=== PATIENT | female | born 1935 | race Caucasian/White ===

== ENCOUNTER → 2017-09-18 | Day surgery (SDC) | payer BC ==
[2017-08-23 08:08] VITALS: Ht 157.5 cm; Wt 63.6 kg
[~2017-09-18] VITALS: Ht 157.5 cm; Wt 63.6 kg
[~2017-09-18] MED LIST: ACETAMINOPHEN 325 MG TAB PO PRN; ASCA500 PO; ATROPINE SULFATE 0.1 MG/ML 5ML SYR IV PRN; AcetylCHOLine CHL OP SOL 1:100 2 ML BTL ONE; BRIMONIDINE TART 0.2% OP SOLN PER DROP CHARGE ONE; BSS 500ML IRRIG ONE; BSS FLUSH ONE; CALC-354 PO; CLR10 PO; CRDCD/180 PO; EpHEDrine SULFATE INJ 50 MG/ML AMP IV PRN; EpINEphrine INJ 1MG/ML AMP 1 MG/ML AMP ONE; FLAX10007 PO; FURO-85 PO; GLC/500 PO; HEALON 10MG/ML 0.85 ML SYR INSTIL ONE; LACTATED RINGER'S 1000ML 1,000 ML IV SCH; LEVO50TA6 PO; LIDOCAINE 3.5% OPH GEL PER APPLICATION CHARGE OPR SCH; LIDOCAINE 4% OP SOLN DROP CHARGE ONE; LIDOCAINE 4% OP SOLN DROP CHARGE OPR SCH; LIDOCAINE HCL 1% MPF 2 ML VIAL ONE; MIDAZOLAM HCL 1 MG/ML 2ML VIAL ONE; MOXIFLOXACIN OPH SOLN PER DROP CHARGE ONE; MULT-506 PO; PROPARACAINE 0.5% OP SOLN PER DROP CHARGE OPR SCH; RAMI10CA PO; TETRACAINE HCL (OPHTH) 60 DROPS/4 ML BTL OP ONE; TOBRAMYCIN/DEXAMETHASONE OPH OINT PER APPLN CHARGE ONE; WARF3TAB PO
[2017-09-18] MEDS: MOXIFLOXACIN OPH SOLN PER DROP CHARGE OPR SCH ×3 (07:29→07:49)
--- NOTE | 2017-09-18 07:40 | History & Physical Bridge - [place] ---
H&P Re-Evaluation Bridge Note: I have examined the patient, reviewed the History & Physical and in the interval since the performance of the History & Physical I have noted the following changes of clinical significance: No changes noted
--- NOTE | 2017-09-18 09:35 | Discharge Instructions-SurgCtr ---
Discharge Instructions Date of Service Sep 18, 2017. Visit Reason for Visit: Right Eye Endothelial Corneal Dystrophy Discharge Discharge Diagnosis / Problem: Fuchs Corneal Dystrophy Right eye Discharge Goals Goal(s): Improve function Activity Recommendations Activity Limitations: per Instructions/Follow-up section Lifting Limitations: no more than 5 pounds Anesthesia . Post Anesthesia Instructions: If you have had General Anesthesia or IV Sedation: * Do not drive today. * Resume driving when surgeon permits. * Do not make important decisions or sign legal documents today. * Call surgeon for: 1. Temperature elevations greater than 101 degrees F. 2. Uncontrollable pain. 3. Excessive bleeding. 4. Persistent nausea and vomiting. 5. Medication intolerance (nausea, vomiting or rash). * For nausea and vomiting use only clear liquids such as: tea, soda, bouillon until nausea subsides, then gradually increase diet as tolerated. * If you have any concerns or questions, call your surgeon's office. If physician is unavailable and it is an emergency, call 911 or go to the nearest emergency room. . Instructions / Follow-Up Instructions / Follow-Up ACTIVITY RECOMMENDATIONS: * Bedrest- Eyes to the patrick * Mild irritation and blurred vision are common for the first few days, redness around the white part of the eye is common. MEDICATIONS: Resume previous medications unless instructed otherwise by your surgeon. Eye drops (today and tomorrow): Cipro - one drop in operative eye every 2 hours while awake Prednisolone 1% - one drop in operative eye every 2 hours while awake SPECIAL CARE INSTRUCTIONS: * If any problems or concerns, please call Dr. Crawford's office at . * Keep plastic shield taped over eye to sleep at night. * Keep plastic shield taped over eye except to administer eye drops. * Keep plastic shield on until office visit the following day. FOLLOW UP VISIT: Follow-up with Dr. Crawford in the [place] office as scheduled. If not already scheduled, please call the office at . Diet Recommendations Home Diet: resume previous diet Procedures Procedures Performed: Right Eye Descements Stripping Automated Endothelial Keratoplasty Pending Studies Studies pending at discharge: no Medical Emergencies . Who to Call and When: Medical Emergencies: If at any time you feel your situation is an emergency, please call 911 immediately. . Non-Emergent Contact Non-Emergency issues call your: Lacquer Coater . . "Provider Documentation" section prepared by Maxim Crawford. .
--- NOTE | 2017-09-18 09:36 | [facility] Post Operative Brief Note ---
Immediate Operative Summary Operative Date Sep 18, 2017. Pre-Operative Diagnosis Right Eye Endothelial Corneal Dystrophy Post-Operative Diagnosis Same Procedure(s) Performed Right Eye Descements Stripping Automated Endothelial Keratoplasty Surgeon Dr. Annamarie Crawford Railway Traction Line Worker Surgeon(s) None Estimated Blood Loss 0 Findings Fuchs Corneal Dystrophy Right eye Fluids (cc crystalloids) see anesthesia record Specimens Culture of Corneal Donor Rim sent Drains none Anesthesia local with sedation Complication(s) None Disposition Recovery Room / PACU
[2017-09-18 09:38] VITALS: TEMP 36.5
--- NOTE | 2017-09-18 09:57 | Anesthesia Progress Nt - [facility] ---
Anesthesia Post Op Note Date & Time Sep 18, 2017 at 09:57 Vital Signs Pain Intensity: 0 Vital Signs Past 12 Hours Date Time Temp Pulse Resp B/P (MAP) Pulse Ox O2 Delivery O2 Flow Rate FiO2 09/18/17 09:38 36.5 71 16 149/77 (101) 96 Room Air 09/18/17 07:24 36.1 81 18 167/89 (115) 96 Room Air Notes Mental Status: alert / awake / arousable, participated in evaluation Pt Amnestic to Procedure: Yes Nausea / Vomiting: adequately controlled Pain: adequately controlled Airway Patency, RR, SpO2: stable & adequate BP & HR: stable & adequate Hydration State: stable & adequate Anesthetic Complications: no major complications apparent
--- NOTE | 2017-09-18 10:10 | OPERATIVE REPORT ---
DATE OF OPERATION: 09/18/2017 PREOPERATIVE DIAGNOSIS: Fuchs corneal dystrophy, right eye. POSTOPERATIVE DIAGNOSIS: Same. PROCEDURE PERFORMED: Descemet stripping automated endothelial keratoplasty, right eye. COMPLICATIONS: None. ESTIMATED BLOOD LOSS: None. ANESTHESIA: Local with sedation. DESCRIPTION OF PROCEDURE: After informed consent was obtained in the holding area, attention was first turned to the donor cornea. It was placed endothelial side up on a corneal trephine and trephinated by myself with an 8.25 mm Annabella trephine. It was then covered in Optisol and set aside. The patient was then brought back to the operating room where cardiac monitoring leads and oxygen by nasal cannula was administered by anesthesia. Gentle IV sedation was given, and the patient's right eye was prepped and draped in usual sterile fashion. A wire lid speculum was placed in the right eye and the operating microscope swung into position. Using 0.12 forceps and a supersharp blade, a paracentesis port was made at the 11 o'clock position of the patient's right eye. Nonpreserved lidocaine 1% was injected into the anterior chamber for anesthesia. A 2.2 mm keratome blade was then used to make a shelved clear cornea incision at the 9 o'clock position of the patient's right eye. The previously used corneal trephine was then inked and used to anna the center of the cornea for an 8.25 mm diameter. The anterior chamber was then filled with Healon and a reversed Sinskey hook was used to score and strip Descemet's membrane from within the marked area. The Descemet stripper was then used to remove Descemet's membrane that was stripped. A stromal clinical nursing intern was then used to roughen the stromal bed in the periphery of the stripped area. The main incision was then marked and widened to 4 mm. Irrigation-aspiration handpiece was then used to remove the viscoelastic material from the eye. The donor cornea was then placed endothelial side up on the EndoSerter and a drop of Healon was placed on it. It was then retracted into the EndoSerter. The EndoSerter was then used to inject the corneal graft into the eye through the primary incision. A single 10-0 nylon suture was placed to the primary incision and the graft was unfolded underneath BSS and air. A Catarina Lasik roller was used to position and center the graft and a complete air fill of the eye was achieved and was held for 15 minutes during which time the cornea was covered in Healon. Healon was then rinsed off. Three drops of atropine were placed on the eye and the Catarina Lasik roller was used to milk the interface. The cornea was recoated with Healon and another 10 minutes elapsed after which time the Healon was again rinsed off the eye and a partial air fluid exchange was done leaving behind a 70% air fill of the patient's right eye. ReSure sealant was then placed over the paracentesis as well as primary incision. The wire lid speculum was then removed from the eye. Vigamox and TobraDex ointment were placed on the eye and the eye was shielded. The patient tolerated the procedure well, was taken to recovery area to lay flat for an hour in stable condition. I attest to the content of the Intraoperative Record and any orders documented therein. Any exceptions are noted below. AUDRA
[2017-09-18 10:40] VITALS: BP 139/72; PULSE 79; O2SAT 94
== END | disposition home or self-care (01) ==
LOC: EDBD 07:00 → X.SURG 07:12
PROVIDERS: ATTEND Ophthalmology
DX: H18.51 Endothelial corneal dystrophy (principal); I10 Essential (primary) hypertension; I48.91 Unspecified atrial fibrillation; E11.9 Type 2 diabetes mellitus without complications; Z88.2 Allergy status to sulfonamides; I51.9 Heart disease, unspecified; I25.10 Atherosclerotic heart disease of native coronary artery without angina pectoris; E78.5 Hyperlipidemia, unspecified; E03.9 Hypothyroidism, unspecified; Z90.89 Acquired absence of other organs; Z98.890 Other specified postprocedural states; Z95.0 Presence of cardiac pacemaker; Z85.3 Personal history of malignant neoplasm of breast

== ENCOUNTER → 2018-02-12 | Day surgery (SDC) | payer BC ==
[2018-02-02 09:31] VITALS: Ht 157.5 cm; Wt 63.6 kg
[~2018-02-12] VITALS: Ht 157.5 cm; Wt 63.6 kg
[~2018-02-12] MED LIST changes: +500ML BSS 0.3ML EPI 1:1000PF IRRIG ONE; +AMVISC PLUS 0.8ML SYRINGE INT OCU ONE; -BSS 500ML IRRIG ONE; +ENDOCOAT 0.85ML SYRINGE INT OCU ONE; +FENTANYL CITRATE INJ 50 MCG/1 ML 2 ML VIAL ONE; -FURO-85 PO; -HEALON 10MG/ML 0.85 ML SYR INSTIL ONE; +LABETALOL HCL IV 5 MG/ML 20ML IV ONE; -LACTATED RINGER'S 1000ML 1,000 ML IV SCH; +LACTATED RINGER'S 1000ML 500 ML IV SCH; -LIDOCAINE 3.5% OPH GEL PER APPLICATION CHARGE OPR SCH; +LIDOCAINE 4% OP SOLN DROP CHARGE OPL SCH; -LIDOCAINE 4% OP SOLN DROP CHARGE OPR SCH; +POVIDONE-IODINE OP SOLN 30 ML BTL ONE; +PROPARACAINE 0.5% OP SOLN PER DROP CHARGE OPL SCH; -PROPARACAINE 0.5% OP SOLN PER DROP CHARGE OPR SCH; -RAMI10CA PO; +RAMI5CAP PO
[2018-02-12] MEDS: PHENYLEPHRINE HCL 2.5% OP SOLN PER DROP CHARGE OPL SCH ×2 (09:05→09:11)
[2018-02-12] MEDS: TROPICAMIDE 1% OP SOLN PER DROP CHARGE OPL SCH ×2 (09:06→09:12)
[2018-02-12] MEDS: CYCLOPENTOLATE HCL 1% OP SOLN PER DROP CHARGE OPL SCH ×2 (09:07→09:13)
[2018-02-12] MEDS: KETOROLAC 0.5% OP SOLN PER DROP CHARGE OPL SCH ×2 (09:08→09:14)
[2018-02-12] MEDS: MOXIFLOXACIN OPH SOLN PER DROP CHARGE OPL SCH ×2 (09:10→09:19)
[2018-02-12] MEDS: ATROPINE SULFATE 1% OP SOLN 2 ML BTL ONE ×2 (11:32→11:33)
--- NOTE | 2018-02-12 11:34 | [facility] Post Operative Brief Note ---
Immediate Operative Summary Operative Date Feb 12, 2018. Pre-Operative Diagnosis Left Endothelial corneal dystrophy, cataract left eye Post-Operative Diagnosis same as preop Procedure(s) Performed Left Eye Descements Stripping Automated Endothelial Keratoplasty; Phacoemulsification With Intraocular Lens Implant Surgeon Dr. Crawford [employer] Agent Surgeon(s) none Estimated Blood Loss 0ml Findings Consistent with Post-Op Diagnosis Fluids (cc crystalloids) see anesthesia record Specimens none Drains None Anesthesia Type MAC Complication(s) none Disposition Accompanied Pt To Recovery: no Disposition: Recovery Room / PACU
--- NOTE | 2018-02-12 11:38 | Discharge Instructions-SurgCtr ---
Discharge Instructions Date of Service Feb 12, 2018. Visit Reason for Visit: Left Endothelial Corneal Dystrophy, Cataract Discharge Discharge Diagnosis / Problem: catract and fuchs dystrophy left eye Discharge Goals Goal(s): Improve function Medications Stopped Medications Name(s): metforamin last dose 02-10-18 Activity Recommendations Activity Limitations: per Instructions/Follow-up section Lifting Limitations: none Anesthesia . Post Anesthesia Instructions: If you have had General Anesthesia or IV Sedation: * Do not drive today. * Resume driving when surgeon permits. * Do not make important decisions or sign legal documents today. * Call surgeon for: 1. Temperature elevations greater than 101 degrees F. 2. Uncontrollable pain. 3. Excessive bleeding. 4. Persistent nausea and vomiting. 5. Medication intolerance (nausea, vomiting or rash). * For nausea and vomiting use only clear liquids such as: tea, soda, bouillon until nausea subsides, then gradually increase diet as tolerated. * If you have any concerns or questions, call your surgeon's office. If physician is unavailable and it is an emergency, call 911 or go to the nearest emergency room. . Instructions / Follow-Up Instructions / Follow-Up ACTIVITY RECOMMENDATIONS: * Bedrest: eyes to the patrick except for bathroom and meals MEDICATIONS: Resume previous medications unless instructed otherwise by your surgeon. Eye drops (today and tomorrow): Cipro - one drop in operative eye every 2 hours while awake Durezol - one drop in operative eye every 2 hours while awake Ilevro - one drop operative eye 1 times daily Timolol- one drop operative eye twice a day SPECIAL CARE INSTRUCTIONS: * If any problems or concerns, please call Dr. Crawford's office at . * Keep plastic shield taped over eye to sleep at night. * Keep plastic shield taped over eye except to administer eye drops. * Keep plastic shield on until office visit the following day. FOLLOW UP VISIT: Follow-up with Dr. Crawford in the [place] office as scheduled. If not already scheduled, please call the office at . Diet Recommendations Home Diet: resume previous diet Procedures Procedures Performed: Left Eye Descements Stripping Automated Endothelial Keratoplasty; Phacoemulsification With Intraocular Lens Implant Pending Studies Studies pending at discharge: no Medical Emergencies . Who to Call and When: Medical Emergencies: If at any time you feel your situation is an emergency, please call 911 immediately. . Non-Emergent Contact Non-Emergency issues call your: Flight Manager . . "Provider Documentation" section prepared by Maxim Crawford. .
[2018-02-12 11:39] VITALS: TEMP 36.6
--- NOTE | 2018-02-12 12:25 | OPERATIVE REPORT ---
DATE OF OPERATION: 02/12/2018 PREOPERATIVE DIAGNOSIS: Nuclear sclerotic cataract and Fuchs corneal dystrophy, left eye. POSTOPERATIVE DIAGNOSIS: Nuclear sclerotic cataract and Fuchs corneal dystrophy, left eye. PROCEDURE PERFORMED: Phacoemulsification cataract extraction with intraocular lens placement and Descemet stripping automated endothelial keratoplasty, left eye. COMPLICATIONS: None. ESTIMATED BLOOD LOSS: None. ANESTHESIA: Local with sedation. DESCRIPTION OF PROCEDURE: After informed consent was obtained in the holding area, attention was first turned to the donor cornea. It was placed endothelial side up on the Annabella trephine and trephinated with an 8.25 mm trephine blade, it was covered in Optisol and set aside. The patient was then brought back to the operating room where cardiac monitoring leads and oxygen by nasal cannula was administered by anesthesia. Gentle IV sedation was given and the patient's left eye was prepped and draped in usual sterile fashion. A wire lid speculum was placed in the left eye and the operating microscope swung into position. Using a 0.12 forceps and a supersharp blade, a paracentesis port was made at the 5 o'clock position of the patient's left eye. 1% nonpreserved lidocaine was injected into the anterior chamber for anesthesia. A 2.2 mm keratome blade was then used to make a shelved clear cornea incision at 3 o'clock position of the patient's left eye. The anterior chamber was filled with Healon and a curvilinear capsulorrhexis was performed with a cystotome and Utrata forceps. BSS on a hydrodissection cannula was then used to hydrodissect the lens nucleus away from the capsular bag. A phacoemulsification handpiece was then used in a stop and chop fashion to remove the lens nucleus. An irrigation-aspiration handpiece was then used to remove the residual cortical material. The eye was then filled with Healon. The main incision was enlarged to 4 mm and a Bausch [employer] Lomb MX60 20.0 Diopter intraocular lens was injected into the capsular bag. The previously used trephine was then inked and used to anna the surface of the cornea for an 8.25 mm diameter. A reverse Sinskey hook was then used to score and strip Descemet's membrane from within that marked area. The Descemet stripper removed the Descemet's membrane from the anterior chamber. A stromal test analyst was then used to roughen the stromal bed in the periphery. A irrigation aspiration handpiece was then used to remove the viscoelastic material from the eye. The donor cornea was then placed endothelial side up on the EndoSerter and a drop of Healon was placed on it. It was then retracted into the EndoSerter and the EndoSerter was used to inject the cornea into the anterior chamber. During this process, bleeding from the iris began. The cornea was floated to the back surface of the host cornea and centered using a reverse Sinskey hook. A complete air fill of the eye was held for 15 minutes after which time the irrigation-aspiration handpiece was used to remove a blood clot from the anterior chamber. The graft was then refloated to the posterior surface of the cornea for another 10 minutes after which time a partial air-fluid exchange was done using Flomax mix in order to help prevent further bleeding. A 50% air bubble was left in the eye. A single 10-0 nylon suture was then placed through the primary incision. ReSure sealant was then placed over the paracentesis as well as the primary incision. The wounds were noted to be watertight. The wire lid speculum was removed from the eye. Vigamox, brimonidine, atropine, and TobraDex ointment were placed on the eye and the eye was shielded. The patient tolerated the procedure well and was taken to recovery area to lay flat for an hour prior to being discharged. I attest to the content of the Intraoperative Record and any orders documented therein. Any exceptions are noted below. AUDRA
--- NOTE | 2018-02-12 12:37 | Anesthesia Progress Nt - [facility] ---
Anesthesia Post Op Note Date & Time Feb 12, 2018 at 12:37 Vital Signs Pain Intensity: 0 Vital Signs Past 12 Hours Date Time Temp Pulse Resp B/P (MAP) Pulse Ox O2 Delivery O2 Flow Rate FiO2 02/12/18 12:13 73 16 121/71 (88) 97 Room Air 02/12/18 11:39 36.6 72 16 125/85 (98) 94 Room Air 02/12/18 08:57 36.6 90 18 168/85 (112) 96 Room Air Notes Mental Status: alert / awake / arousable, participated in evaluation Pt Amnestic to Procedure: Yes Nausea / Vomiting: adequately controlled Pain: adequately controlled Airway Patency, RR, SpO2: stable & adequate BP & HR: stable & adequate Hydration State: stable & adequate Anesthetic Complications: no major complications apparent
[2018-02-12 12:52] VITALS: BP 117/73; PULSE 72; O2SAT 96
== END | disposition home or self-care (01) ==
LOC: X.SURG 08:47
PROVIDERS: ATTEND Ophthalmology
DX: H25.12 Age-related nuclear cataract, left eye (principal); H18.51 Endothelial corneal dystrophy; Z94.7 Corneal transplant status; I25.10 Atherosclerotic heart disease of native coronary artery without angina pectoris; I10 Essential (primary) hypertension; E11.9 Type 2 diabetes mellitus without complications; M06.9 Rheumatoid arthritis, unspecified; E07.9 Disorder of thyroid, unspecified; Z88.2 Allergy status to sulfonamides; Z95.0 Presence of cardiac pacemaker

== ENCOUNTER → 2018-02-21 | Day surgery (SDC) | payer BC ==
[2018-02-20 10:07] VITALS: Ht 157.5 cm; Wt 63.6 kg
[~2018-02-21] VITALS: Ht 157.5 cm; Wt 63.6 kg
[~2018-02-21] MED LIST changes: -500ML BSS 0.3ML EPI 1:1000PF IRRIG ONE; +ATROPINE SULFATE 1% OP SOLN 2 ML BTL ONE; -AcetylCHOLine CHL OP SOL 1:100 2 ML BTL ONE; -BSS FLUSH ONE; -ENDOCOAT 0.85ML SYRINGE INT OCU ONE; +FENTANYL CITRATE INJ 50 MCG/1 ML 2 ML VIAL IV PRN; -FENTANYL CITRATE INJ 50 MCG/1 ML 2 ML VIAL ONE; -LABETALOL HCL IV 5 MG/ML 20ML IV ONE; +LACTATED RINGER'S 1000ML 1,000 ML IV SCH; -LACTATED RINGER'S 1000ML 500 ML IV SCH; +LIDOCAINE 3.5% OPH GEL PER APPLICATION CHARGE OPL SCH; +ONDANSETRON INJ 2 MG/ML 2 ML VIAL IV PRN; -TETRACAINE HCL (OPHTH) 60 DROPS/4 ML BTL OP ONE
[2018-02-21] MEDS: MOXIFLOXACIN OPH SOLN PER DROP CHARGE OPL SCH ×3 (12:22→12:43)
--- NOTE | 2018-02-21 13:36 | [facility] Post Operative Brief Note ---
Immediate Operative Summary Operative Date February 21, 2018. Pre-Operative Diagnosis Detached DSAEK graft left eye Post-Operative Diagnosis Same as pre-op Procedure(s) Performed Left Eye Refloatation Of Cornea Graft Surgeon Instrument Mechanics Supervisor Surgeon(s) None Estimated Blood Loss Zero Findings Consistent with Post-Op Diagnosis Specimens None Drains None Anesthesia Type MAC Complication(s) none Disposition Accompanied Pt To Recovery: no Disposition: Recovery Room / PACU
[2018-02-21 13:38] VITALS: TEMP 37.2
--- NOTE | 2018-02-21 13:39 | Discharge Instructions-SurgCtr ---
Discharge Instructions Date of Service February 21, 2018. Visit Reason for Visit: For Refloat Of Graft Left Eye Discharge Discharge Diagnosis / Problem: Refloat detached DSAEK graft left eye Discharge Goals Goal(s): Improve function Medications Stopped Medications Name(s): was given short notice of Metformin. Activity Recommendations Activity Limitations: per Instructions/Follow-up section Lifting Limitations: no more than 5 pounds Anesthesia . Post Anesthesia Instructions: If you have had General Anesthesia or IV Sedation: * Do not drive today. * Resume driving when surgeon permits. * Do not make important decisions or sign legal documents today. * Call surgeon for: 1. Temperature elevations greater than 101 degrees F. 2. Uncontrollable pain. 3. Excessive bleeding. 4. Persistent nausea and vomiting. 5. Medication intolerance (nausea, vomiting or rash). * For nausea and vomiting use only clear liquids such as: tea, soda, bouillon until nausea subsides, then gradually increase diet as tolerated. * If you have any concerns or questions, call your surgeon's office. If physician is unavailable and it is an emergency, call 911 or go to the nearest emergency room. . Instructions / Follow-Up Instructions / Follow-Up ACTIVITY RECOMMENDATIONS: * Bedrest (eyes to the patrick) except for meals and bathroom MEDICATIONS: Resume previous medications unless instructed otherwise by your surgeon. Eye drops (today and tomorrow): Cipro - one drop in operative eye 4 x a day Prednisolone 1% - one drop in operative eye 4 x a day Bromfenac - one drop in operative eye once daily Simbrinza - one drop in operative eye twice daily Timolol - one drop operative eye 1 times daily SPECIAL CARE INSTRUCTIONS: * If any problems or concerns, please call Dr. Crawford's office at . * Keep plastic shield taped over eye to sleep at night. * Keep plastic shield taped over eye except to administer eye drops. * Keep plastic shield on until office visit the following day. FOLLOW UP VISIT: Follow-up with Dr. Crawford in the [place] office as scheduled. If not already scheduled, please call the office at . Diet Recommendations Home Diet: resume previous diet Procedures Procedures Performed: Left Eye Refloatation Of Cornea Graft Pending Studies Studies pending at discharge: no Medical Emergencies . Who to Call and When: Medical Emergencies: If at any time you feel your situation is an emergency, please call 911 immediately. . Non-Emergent Contact Non-Emergency issues call your: [employer] Rep . . "Provider Documentation" section prepared by Maxim Crawford. .
--- NOTE | 2018-02-21 14:19 | Anesthesia Progress Nt - [facility] ---
Anesthesia Post Op Note Date & Time February 21, 2018 at 14:19 Vital Signs Vital Signs Past 12 Hours Date Time Temp Pulse Resp B/P (MAP) Pulse Ox O2 Delivery O2 Flow Rate FiO2 02/21/18 13:38 37.2 76 12 154/73 (100) 95 Room Air 02/21/18 12:07 36.8 79 18 158/87 (110) 95 Room Air Notes Mental Status: alert / awake / arousable, participated in evaluation Pt Amnestic to Procedure: Yes Nausea / Vomiting: adequately controlled Pain: adequately controlled Airway Patency, RR, SpO2: stable & adequate BP & HR: stable & adequate Hydration State: stable & adequate Anesthetic Complications: no major complications apparent
--- NOTE | 2018-02-21 14:26 | OPERATIVE REPORT ---
DATE OF OPERATION: 02/21/2018 PREOPERATIVE DIAGNOSIS: Detached Descemet stripping automated endothelial keratoplasty graft, left eye. POSTOPERATIVE DIAGNOSIS: Detached Descemet stripping automated endothelial keratoplasty graft, left eye. PROCEDURE PERFORMED: Descemet stripping automated endothelial keratoplasty graft re-floatation, left eye. COMPLICATIONS: None. ESTIMATED BLOOD LOSS: None. ANESTHESIA: Local with sedation. DESCRIPTION OF PROCEDURE: After informed consent was obtained in the holding area, the patient was taken back to the operating room where cardiac monitoring leads and oxygen by nasal cannula administered by anesthesia. Gentle IV sedation was given. The patient's left eye was prepped and draped in the usual sterile fashion. Wire lid speculum was placed in the left eye and the operating microscope swung in position. Lidocaine 1% was injected into the anterior chamber through the previously made paracentesis port at the last surgery at the 5 o'clock position of the patient's left eye. Air through an air cannula was then injected into the anterior chamber through the paracentesis achieving a 50% air fill of air, and a 30 gauge needle was then used to inject air into the anterior chamber for complete air fill in the anterior chamber. This complete air fill was held for 10 minutes after which time cornea was milked using a Catarina LASIK roller. Cornea was then recoated with Amvisc and another 10 minutes elapsed, after which time the Amvisc was rinsed off the cornea. A partial air fluid exchange was done leaving behind 75% air fill of the anterior chamber. ReSure sealant was placed over the paracentesis port as well as the tract of the 30-gauge needle. The wire lid speculum was then removed from the eye. Vigamox, brimonidine, atropine, and TobraDex ointment were placed on the eye, and the eye was shielded. The patient tolerated the procedure well and was taken to recovery area in stable condition. I attest to the content of the Intraoperative Record and any orders documented therein. Any exception s are noted below.
[2018-02-21 14:51] VITALS: BP 131/75; PULSE 76; O2SAT 95
== END | disposition home or self-care (01) ==
LOC: X.SURG 11:53
PROVIDERS: ATTEND Ophthalmology
DX: T86.848 Other complications of corneal transplant (principal); Y83.0 Surgical operation with transplant of whole organ as the cause of abnormal reaction of the patient, or of later complication, without mention of misadventure at the time of the procedure; I10 Essential (primary) hypertension; I48.91 Unspecified atrial fibrillation; E11.9 Type 2 diabetes mellitus without complications; M06.9 Rheumatoid arthritis, unspecified; Z95.0 Presence of cardiac pacemaker; Z94.7 Corneal transplant status; Z85.3 Personal history of malignant neoplasm of breast; Z88.2 Allergy status to sulfonamides